=== PATIENT | male | born 1955 | race Caucasian/White ===

== ENCOUNTER 2018-06-01 12:28 | Day surgery (SDC) | payer OTHER ==
[2018-06-01] MEDS ORDERED: LIDOCAINE 2% (SDV) 5 ML INJ (14:06)
[2018-06-01] MEDS ORDERED: PROPOFOL 60 ML (14:06)
== END 2018-06-01 14:31 | disposition home or self-care (01) ==
LOC: GIL 12:28
DX: Z12.11 Encounter for screening for malignant neoplasm of colon (principal); K64.8 Other hemorrhoids
CPT/HCPCS: 45378